=== PATIENT | female | born 1965 | race Caucasian/White ===

== ENCOUNTER 2025-06-20 15:26 | Outpatient (AMB) | payer OTHER, SELFPAY ==
--- NOTE | 2025-06-20 15:27 | MHC.OFFVIS ---
Vital Signs 06/20/25 15:29 Height 5 ft 5.25 in Weight 150 lb BMI 24.8 BP 106/74 Blood Pressure Location Rt brachial Position Sitting Pulse 78 Pulse Source Pulse Oximeter Pulse Oximetry (%) 99 Oxygen Delivery Method Room Air Intake Visit Reasons: Obstructive sleep apnea Allergies Penicillins Allergy (Intermediate, Verified 06/20/25 15:37) Hives HPI HPI Obstructive sleep apnea: Details: Jessi is a pleasant 60 year old female, never smoker, with underlying LARY, GERD and anxiety. She was referred by PCP for further management of LARY. She reports home sleep study in 2022 through [facility], which revealed mild LARY with AH 5.8 with no significant nocturnal hypoxemia. From this same sleep study was told that she has moderate LARY and started on CPAP therapy for three months however has not continued use. She continues with day time fatigue and was borderline anemic started on replacement therapy but resulted in no change, also reports loud snoring. She questions severity of LARY and continued need for CPAP therapy. She also notes ongoing sinus symptoms with persistent post nasal drip as well as intermittent dry cough, under the care of ARIEL allergy and will be undergoing allergy testing in the near future. She denies dyspnea, chest tightness or wheezing. She denies h/o asthma/COPD. She denies any environmental exposures. She reports son with asthma otherwise no pertinent family history. [facility] Social History (Updated 06/20/25 @ 15:36 by Gala Chavez [facility]) Patient Tobacco Use Status: Never used Tobacco Review of Systems Const Denies chills, Denies excessive sweating, Denies fever(s), Denies headache(s) and Denies night sweats Eyes Denies dry eyes, Denies irritation and Denies itchy eyes ENT Reports Normal hearing present, Denies headache(s), Denies nasal discharge and Denies sore throat Card Denies chest pain, Denies chest pain at rest, Denies chest pain with activity, Denies claudication, Denies leg edema, Denies dyspnea, Denies dyspnea on exertion, Denies orthopnea and Denies paroxysmal nocturnal dyspnea Resp Denies chest congestion, Denies excessive phlegm production, Denies pain on inspiration, Denies pain with cough, Denies dyspnea, Denies dyspnea on exertion, Denies stridor and Denies wheezing Musc Denies myalgias Neuro Reports Normal hearing present and Denies headache(s) Endo Denies excessive sweating Jarrod/Lymph Denies lymphadenopathy Aller/Immun Denies itchy eyes, Denies seasonal rhinorrhea and Denies wheezing Physical Exam Vital Signs: Last Vital Signs Pulse 78 06/20/25 15:29 BP 106/74 06/20/25 15:29 Pulse Ox 99 06/20/25 15:29 Oxygen Delivery Method Room Air 06/20/25 15:29 BMI result Body Mass Index 24.8 Const General: cooperative, healthy appearing, comfortable, no acute distress, well developed and alert Orientation/consciousness: patient oriented x3 Limitations: no limitations HEENT Head: Yes normal to inspection, Yes normocephalic and Yes atraumatic Ears: hearing grossly normal bilaterally and external ears normal Eyes General: appearance normal, both eyes and all related structures Eyelids: Yes eyelids normal Sclerae: sclerae normal EOM: EOMs intact bilaterally Neck Neck: Yes normal visual inspection and Yes no lymphadenopathy Lymphatic: no lymphadenopathy noted Chest Chest palpation & inspection: normal inspection of the chest Resp Effort & Inspection: normal respiratory effort, able to speak in complete sentences, no audible wheezes, no cough, no stridor, not tachypneic, no tripod positioning and no use of accessory muscles Auscultation: clear to auscultation bilaterally Cardio Jugular venous distension: no JVD Rate: regular rate Rhythm: regular rhythm Skin Other: warm, dry General skin exam: no rashes or lesions noted Neuro General: patient oriented x3 Cranial nerves: Yes Normal hearing present Cognition (Neuro): normal cognition Gait exam (Neuro): Normal gait present Extrem General: Yes normal to inspection, Yes capillary refill normal, Yes no clubbing, cyanosis or edema and Yes no pedal edema Psych Appearance: grossly normal and well kempt Speech and movement: Normal speech and movement present and Clear speech present Affect: normal affect Attitude: cooperative Thought process: Normal thought process present Thought content: Normal thought content present Insight: Good insight present (Psych) Judgement: Good judgement present (Psych) Assessment & Plan Assessment & Plan (1) Obstructive sleep apnea: Code(s): G47.33 - Obstructive sleep apnea (adult) (pediatric) Category: Medical (2) Loud snoring: Code(s): R06.83 - Snoring Category: Medical (3) Daytime somnolence: Code(s): R40.0 - Somnolence Category: Medical Plan Patient with prior home sleep study was borderline for LARY, not currently using CPAP therapy. Will send for repeat homoe sleep study to assess severity as she continues with signficant daytime fatigue and loud snoring. Discussed in lab sleep study however she prefers home PSG at this time. She also reports ongoing cough however currently being evaluated by program and research coordinator. If testing unremarkable, will send for PFT. Currently denies any reflux symptoms. All questions were answered and patient is in agreement of plan. Will follow up to review results or sooner if needed. Orders: Orders RT home sleep study Today R06.83 - Snoring, R40.0 - Somnolence Coding Level of Care Code New Pt Level 3 (15030) Diagnoses Obstructive sleep apnea G47.33 Loud snoring R06.83 Daytime somnolence R40.0
[2025-06-20 15:29] VITALS: BP 106/74; PULSE 78; O2SAT 99; BMI 24.8
--- OUTSIDE RECORDS SUMMARY | 2025-06-20 15:29 | XMS_ITS ---
[facility] Organization Unknown Care Team Organization Name Specialty Phone Email Start Date End Da te [facility] Marcelle Hooks DO Primary Care 09/27/202206/20
--- OUTSIDE RECORDS SUMMARY | 2025-06-20 15:29 | XMS_ITS | Patient Health Record ---
Author Organization [facility] Address [address] [place] [address] Care Team Providers Care [employer] Director Name Role Phone TARSHA THOMAS, MARIZA Primary Care Provider Unavail able Charito Burr Unavailable [phone] Allergies Allergen (clinical drug ingredient) Drug/Non Drug Allergy documented on EMR Reaction Allergy Type Onset Date Status Penicillin Hives Drug Allergy Active Results Component Value Reference Range Notes Urinalysis Reviewed date:03/18/2025 09:05:52 AM Interpretation: Performing Lab: Notes/Report: PH 5.0 PROTEIN Small GLUCOSE Neg BLOOD Trace Vitamin D, [id number] Reviewed date:03/19/2025 01:01:12 PM Interpretation: Performing Lab:[facility], [address] [place] [address], [place], Phone - [phone], Director - Osvaldo Notes/Report: Vitamin D, 25-Hydroxy 83.4 30.0-100.0 ng/mL Vitamin D deficiency has been defined by the [place] of Medicine and an Endocrine Society practice guideline as a level of serum 25-OH vitamin D less than 20 ng/mL (1,2). The Endocrine Society went on to further define vitamin D insufficiency as a level between 21 and 29 ng/mL (2). 1. IOM ([place] of Medicine). 2010. Dietary reference intakes for calcium and D. [place]: The National Academies Press. 2. Emerson MF, Tamika NC, Greg STEPHENS, et al. Evaluation, treatment, and prevention of vitamin D deficiency: an Endocrine Society clinical practice guideline. JCEM. 2010; 96(7):1911-30. [id number] IGP No Culture 30 Plus Reviewed date:03/20/2025 04:19:15 PM Interpretation: Performing Lab:May Skinner, [address], [address], [place], Phone - [phone], Director - [facility] Notes/Report: Clinical Information:Vaginal/Cervical, LMP: Non e with IUD, Hx of LGSIL, + HPV, + Ge Source.............Cervix;Vagina Dates / Results....03/11/24 NIL, Neg HPV Other..............IUD No. of containers..01 ThinPrep Vial DIAGNOSIS: NEGATIVE FOR IN TRAEPITHELIAL LESION OR MALIGNANCY. Specimen adequacy: Satisfact ory for evaluation. No endocervical component is identified. Clinician provided ICD10: Z0 1.419 Performed by: Victoriano Dunne , Radio Producer (ASCP) . . Note: The Pap smear is a screening test designed to aid in the detection of premalignant and malignant conditions of the uterine cervix. It is not a diagnostic procedure and should not be used as the sole means of detecting cervical cancer. Both false-positive and false-negative reports do occur. . Test Methodology: This liquid based ThinPrep(R) pap test was screened with the use of an image guided system. HPV Aptima Negative Negative This nucleic acid amplification test detects fourteen high-risk HPV types (16,18,31,33,35,39,45,51,52,56,5 8,59,66,68) without differentiation. HPV Genotype Reflex Criteria not met, HPV Genotype not performed. PDF Report Reviewed date:03/19/2025 01:00:59 PM Interpretation: Performing Lab:May Davila, [address], Phone - [phone], Director - Osvaldo Notes/Report: FSH+LH+E2 Reviewed date:03/19/2025 01:01:54 PM Interpretation: Performing Lab:May Davila, [address], Phone - [phone], - Osvaldo Notes/Report: LH 38.5 Adult Female Range Follicular phase 2.4 - 12.6 Ovulation phase 14.0 - 95.6 Luteal phase 1.0 - 11.4 Postmenopausal 7.7 - 58.5 FSH 76.8 Adult Female Range Follicular phase 3.5 - 12.5 Ovulation phase 4.7 - 21.5 Luteal phase 1.7 - 7.7 Postmenopausal 25.8 - 134.8 Estradiol <5.0 Adult Female Range Follicular phase 12.5 - 166.0 Ovulation phase 85.8 - 498.0 Luteal phase 43.8 - 211.0 Postmenopausal <6.0 - 54.7 1st trimester 215.0 - >4300.0 Shilo ECLIA methodology PDF Report Reviewed date:03/20/2025 04:19:26 PM Interpretation: Performing Lab:[facility] Skinner, [address], [address], [place], Phone - [phone], Director - [facility] Notes/Report: Clinical Information:Vaginal/Cervical, LMP: Non e with IUD, Hx of LGSIL, + HPV, + Ge Source.............Cervix;Vagina Dates / Results....03/11/24 NIL, Neg HPV Other..............IUD No. of containers..01 ThinPrep Vial Reason For Referral No Information Medications Medication SIG (Take, Route, Frequency, Duration) Notes Start Date End Date Status Araseli 180 MG 1 ORAL PRN [facility] 10/24/2011 Act seven traZODone HCl 50 MG 75mg Orally at night [facility] 10/28/2014 Active D3-1000 25 MCG (1000 UT) TAKE 1 TABLET BY MOUTH EVERY DAY Oral; Duration: 90 Active Citalopram Hydrobromide 20 MG TAKE 1 1/2 TABLET BY MOUTH EVERY DAY Oral Once a day Active Semaglutide Active Mirena Inserted 01/29/19 Act seven Loperamide HCl 2 MG TAKE 1 CAPSULE BY MOUTH 4 TIMES DAILY NEEDED FOR DIARRHEA. Oral; Duration: 15 Active valACYclovir HCl 1 GM Oral; Duration: 20 Active Social History Tobacco Use: Social History Observation Description Date Details (start date - stop date) Never Smoker NA - NA AUDIT-C (Standard) Question Answer Notes Did you have a drink contain ing alcohol in the past year? Yes How often did you have a dri nk containing alcohol in the past year? 2 to 3 times a week (3 points) How many drinks did you have on a typical day when you were drinking in the past year? 1 or 2 drinks (0 point) How often did you have six o r more drinks on one occasion in the past year? Never (0 point) Points 3 Interpretation Positive Tobacco Control (Standard) Question Answer Notes Tobacco use: Nonsmoker Problems Problem Type SNOMED Code ICD Code Onset Dates Problem Status W/U Status Risk Notes Problem Human papilloma virus deoxyribonucleic acid test positive, high risk on vaginal specimen (761958538864334) Cervical high risk human papillomavirus (HPV) DNA test positive (R87.810) Active confirmed Problem Menopause (168782225) Menopausal and female climacteric states (N95.1) Active confirmed Problem Moderate cervical dysplasia (991059583) Moderate cervical dysplasia (N87.1) Active confirmed Problem Abnormal vaginal bleeding (406276931) Other specified abnormal uterine and vaginal bleeding (N93.8) Active confirmed Problem Vulvodynia (553951140) Vulvodynia, unspecified (N94.819) Active confirmed Problem Unspecified menopausal and perimenopausal disorder (N95.9) Active confirmed Problem History of dysplasia of cervix (285478497) Personal history of cervical dysplasia (Z87.410) Active confirmed Problem Menopause (998744155) Menopausal and female climacteric states (N95.1) Active confirmed Problem Vulvodynia (844639675) Vulvodynia, unspecified (625.70) Active confirmed Major Problem Atypical glandular cells on cervical Papanicolaou smear (516414299) Abnormal glandular Papanicolaou smear of cervix (795.00) Active confirmed Diag Problem Gynecological examination normal (985557423538426) Routine gynecological examination (V72.31) Active confirmed Major Problem Surveillance of intrauterine device contraception done (114908985897390) Surveillance of previously prescribed intrauterine contraceptive device (V25.42) Active confirmed Other Vital Signs Temperature 97.5 degrees Fahrenheit 03/18/2025 Blood pressure diastolic 78 mm Hg 03/18/2025 Height 66 in 03/18/2025 Blood pressure systolic 122 mm Hg 03/18/2025 Weight 154 lbs 03/18/2025 BMI 24.85 kg/m2 03/18/2025 Encounters Encounter Location Date Provider Diagnosis Total [address] [place] [address] 03/18/2025 Charito Burr Encounter for gynecological examination (general) (routine) without abnormal findings Z01.419 ; Encounter for screening mammogram for malignant neoplasm of breast Z12.31 ; Menopausal and female climacteric states N95.1 ; Encounter for routine checking of intrauterine contraceptive device Z30.431 ; Personal history of cervical dysplasia Z87.410 and Dense breasts, unspecified R92.30 Assessments Encounter Date Diagnosis (ICD Code) Assessment Notes Treatment Notes Treatment Clinical Notes Section Notes 03/18/2025 Encounter for gynecological examination (general) (routine) without abnormal findings (ICD-10 - Z01.419) PAP TEST WITH HPV TYPING WAS OBTAINED. 03/18/2025 Encounter for screening mammogram for malignant neoplasm of breast (ICD-10 - Z12.31) REGULAR MAMMOGRAMS AND SBE'S WERE RECOMMENDED. 03/18/2025 Menopausal and female climacteric states (ICD-10 - N95.1) DISCUSSED MENOPAUSE AND SYMPTOMS ASSOCIATED WITH THIS. CHECK FSH, ESTRADIOL. 03/18/2025 Encounter for routine checking of intrauterine contraceptive device (ICD-10 - Z30.431) PAT WAS REASSURED IUD IS IN PLACE. WILL REMOVE IN 2025. 03/18/2025 Personal history of cervical dysplasia (ICD-10 - Z87.410) DISCUSSED PREVIOUS LEEP FOR LILIAM 2 AND SUBSEQUENTLY NEGATIVE PAP TESTS. REPEAT PAP TEST WITH HPV TYPING WAS OBTAINED. 03/18/2025 Dense breasts, unspecified (ICD-10 - R92.30) DISCUSSED DENSE BREASTS ON MAMMOGRAM AND ITS IMPLICATIONS. 3D MAMMOGRAMS WERE RECOMMENDED. Plan Of Treatment Pending Test Test Name Order Date Sonohysterogram 06/14/2018 Urinalysis 02/15/2021 ENDOMETRIAL BX 06/14/2018 ESTRADIOL 01/11/2018 FSH 01/11/2018 LH 01/11/2018 THIN PREP,HPV,BEV IF HPV+ (>29YR)(DIAG) 12/17/2019 MM Digital Mammo Screening 12/17/2019 MM Digital Mammo Screening 11/10/2017 MM Digital Mammo Screening 02/15/2021 MM Digital Mammo Screening 02/23/2022 MM Digital Mammo Screening 03/02/2023 MM Digital Mammo Screening 03/11/2024 MM Digital Mammo Screening 03/18/2025 Next Appt Details Provider Name:Charito mar, 03/26/2026 08:20:00 AM, [address], [address], [place], [address], Insurance Providers Payer Name Payer Address Payer Phone Subscriber Number Group Number Insured Name Patient Relationship to Insured Coverage Start Date Coverage End Date [facility] [address] [place] [address] [phone] [id number] JOHNSON CAPONE Self - patient is the insured Medical (General) History Medical History History ICD Code Vulvodynia, unspecified N94.819 Inconclusive mammogram R92.2 Atypical squamous cells janneth ot exclude high grade squamous intraepithelial lesion on cytologic smear of cervix (ASC-H) R87.611 Unspecified abnormal cytological finding s in specimens from cervix uteri R87.619 Cervical high risk human papillomavirus (HPV) DNA test positive R87.810 Positive HPV Genotype 18/45 Menopausal and female climacteric states N95.1 Moderate cervical dysplasia N87.1 Other specified abnormal uterine and vag inal bleeding N93.8 Low grade squamous intraepit helial lesion on cytologic smear of cervix (LGSIL) R87.612 Mammographic heterogeneous density, bila teral breasts R92.333 Dense breasts, unspecified R92.30 Unspecified menopausal and perimenopausa l disorder N95.9 Surgical History Surgery Date(Month/Year) Breast Augmentation Colonoscopy Hospitalization History Reason Date(Month/Year) See Surigcal Hx 2 Vaginal Deliveries
== END 2025-06-20 16:22 | disposition home or self-care (01) ==
LOC: HO.HPSW 15:27
PROVIDERS: PCP Nurse Practitioner Family; Visit Provider Nurse Practitioner Family
DX: G47.33 Obstructive sleep apnea (adult) (pediatric) (principal); R06.83 Snoring; R40.0 Somnolence
CPT/HCPCS: 99203

== ENCOUNTER → 2025-09-25 15:45 | Outpatient (REF) | payer OTHER, SELFPAY ==
--- OUTSIDE RECORDS SUMMARY | 2025-09-25 18:30 | XMS_ITS | Patient Health Record ---
Author Organization [employer] Address [address] [place] [address] Care Team Providers Care Child Welfare Caseworker Name Role Phone TARSHA THOMAS, MARIZA Primary Care Provider Unavail able Charito Burr Unavailable [phone] Allergies Allergen (clinical drug ingredient) Drug/Non Drug Allergy documented on EMR Reaction Allergy Type Onset Date Status Penicillin Hives Drug Allergy Active Results Component Value Reference Range Notes FSH+LH+E2 Reviewed date:03/19/2025 01:01:54 PM Interpretation: Performing Lab:May Davila, [employer] [facility], [place], Phone - [phone], Director - Osvaldo Notes/Report: LH 38.5 Adult Female [...] >4300.0 Shilo ECLIA methodology PDF Report Reviewed date:03/19/2025 01:00:59 PM Interpretation: Performing Lab:May Davila, [employer] [place], [place], Phone - [phone], Director - Osvaldo Notes/Report: [id number] IGP No Culture 30 Plus Reviewed date:03/20/2025 04:19:15 PM Interpretation: Performing Lab:[facility] [place], [address], [address], [place], Phone - [phone], Director - [facility] Notes/Report: Clinical Information:Vaginal/Cervical, LMP: Non e with IUD, Hx of LGSIL, + HPV, + Ge Source.............Cervix;Vagina Dates / Results....03/11/24 NIL, Neg HPV Other..............IUD No. of containers..01 ThinPrep Vial DIAGNOSIS: NEGATIVE FOR IN TRAEPITHELIAL LESION OR MALIGNANCY. Specimen adequacy: Satisfact ory for evaluation. No endocervical component is identified. Clinician provided ICD10: Z0 1.419 Performed by: Victoriano Dunne , Assistance Specialist (ASCP) . . Note: The Pap smear [...] Criteria not met, HPV Genotype not performed. Vitamin D, [id number] Reviewed date:03/19/2025 01:01:12 PM Interpretation: Performing Lab:[facility] [place], [address], [place], Phone - [phone], Director - Osvaldo Notes/Report: Vitamin D, 25-Hydroxy 83.4 30.0-100.0 ng/mL Vitamin D deficiency has been defined by the [place] of Medicine and an Endocrine Society practice guideline as a level of serum 25-OH vitamin D less than 20 ng/mL (1,2). The Endocrine Society went on to further define vitamin D insufficiency as a level between 21 and 29 ng/mL (2). 1. IOM ([place] of Medicine). 2010. Dietary reference intakes for calcium and D. [place]: The National Academies Press. 2. Emerson JADE, Tamika FISHER, Greg STEPHENS, et al. Evaluation, treatment, and prevention of vitamin D deficiency: an Endocrine Society clinical practice guideline. JCEM. 2010; 96(3):1911-30. Urinalysis Reviewed date:03/18/2025 09:05:52 AM Interpretation: Performing Lab: Notes/Report: PH 5.0 PROTEIN Small GLUCOSE Neg BLOOD Trace PDF Report Reviewed date:03/20/2025 04:19:26 PM Interpretation: Performing Lab:[facility] [place], [address], [address], [place], Phone - [phone], Director - [facility] Notes/Report: Clinical Information:Vaginal/Cervical, LMP: Non e with IUD, Hx of LGSIL, + HPV, + Ge Source.............Cervix;Vagina Dates / Results....03/11/24 NIL, Neg HPV Other..............IUD No. of containers..01 ThinPrep Vial Reason For Referral No Information Medications Medication SIG (Take, Route, Frequency, Duration) Notes Start Date End Date Status Araseli 180 MG 1 ORAL PRN [facility] 10/24/2011 Act seven traZODone HCl 50 MG 75mg Orally at night [facility] 10/28/2014 Active D3-1000 25 MCG (1000 UT) [...] test positive, high risk on vaginal specimen (124461796643803) Cervical high risk human papillomavirus (HPV) DNA test positive (R87.810) Active confirmed Problem Menopause (523902416) Menopausal and female climacteric states (N95.1) Active confirmed Problem Moderate cervical dysplasia (045165686) Moderate cervical dysplasia (N87.1) Active confirmed Problem Abnormal vaginal bleeding (761205136) Other specified abnormal uterine and vaginal bleeding (N93.8) Active confirmed Problem Vulvodynia (832075821) Vulvodynia, unspecified (N94.819) Active confirmed Problem Unspecified menopausal and perimenopausal disorder (N95.9) Active confirmed Problem History of dysplasia of cervix (991598848) Personal history of cervical dysplasia (Z87.410) Active confirmed Problem Menopause (739935668) Menopausal and female climacteric states (N95.1) Active confirmed Problem Vulvodynia (377842609) Vulvodynia, unspecified (625.70) Active confirmed Major Problem Atypical glandular cells on cervical Papanicolaou smear (904438730) Abnormal glandular Papanicolaou smear of cervix (795.00) Active confirmed Diag Problem Gynecological examination normal (169458163042674) Routine gynecological examination (V72.31) Active confirmed Major Problem Surveillance of intrauterine device contraception done (387101100112075) Surveillance of previously prescribed intrauterine contraceptive device (V25.42) Active confirmed Other Vital Signs Temperature 97.5 degrees Fahrenheit 03/18/2025 Blood pressure diastolic 78 mm Hg 03/18/2025 Height 66 in 03/18/2025 Blood pressure systolic 122 mm Hg 03/18/2025 Weight 154 lbs 03/18/2025 BMI 24.85 kg/m2 03/18/2025 Encounters Encounter Location Date Provider Diagnosis Total [address] [place] [address] 03/18/2025 Charito Burr Encounter for gynecological examination [...] Provider Name:Charito mar, 03/26/2026 08:20:00 AM, [address], [address], [place], [address], Insurance Providers Payer Name Payer Address Payer Phone Subscriber Number Group Number Insured Name Patient Relationship to Insured Coverage Start Date Coverage End Date [facility] [address] [place] [address] [id number] JOHNSON CAPONE Self - patient is the [...]
== END ==
LOC: HO.SL 15:45
PROVIDERS: PCP Nurse Practitioner Family; Visit Provider Nurse Practitioner Family
DX: G47.33 Obstructive sleep apnea (adult) (pediatric) (principal); R06.83 Snoring; R40.0 Somnolence
CPT/HCPCS: 95806

== ENCOUNTER → 2025-09-25 16:11 | Outpatient (BNV) | payer OTHER, SELFPAY | PROVIDERS: PCP Nurse Practitioner Family; Visit Provider Internal Medicine | DX: G47.33 Obstructive sleep apnea (adult) (pediatric) (principal) | CPT/HCPCS: 95806 ==

== ENCOUNTER 2025-10-07 15:54 | Outpatient (AMB) | payer OTHER, SELFPAY ==
--- OUTSIDE RECORDS SUMMARY | 2025-10-06 23:59 | XMS_ITS | Continuity of Care Document ---
Author Organization [facility] Address [address] [place] [address] Julia moran, [address] [place] [address]- Care Team Providers Care Technician Helper Instrument Name Role Phone Florentino THOMAS, Kari Primary Care Physician Encounter [facility] [id number] Date(s): 09/29/25 - 10/06/25 [facility] [address] [place] [address] Drive [address] [place] [address]- Attending Physician: Arnold Villa DO Referring Physician: Lula Charlton MD Encounter Type: Office Visit Allergies, Adverse Reactions, Alerts Substance Criticality Severity Reaction Reaction Severity Status penicillins Active Functional Status Functional Status Assessment Assessment Assessment Component Result Effecti ve Date Disability status [CUBS] I'm Thriving - no identified disability 09/29/25 Difficulty Reading O r Writing No 09/29/25 Are you blind, or do you have serious difficulty seeing, even when wearing glasses No 09/29/25 Difficulty communica ting in usual language No 09/29/25 Are you deaf, or do you have serious difficulty hearing No 09/29/25 Do you have serious difficulty walking or climbing stairs No 09/29/25 Because of a physica l, mental, or emotional condition, do you have serious difficulty concentrating, remembering, or making decisions No 09/29/25 Because of a physica l, mental, or emotional condition, do you have difficulty doing errands alone such as visiting a physician's office or shopping No 09/29/25 Do you have difficul ty dressing or bathing No 09/29/25 Do you need any wilfredo tional assistance or accommodations during your visit No 09/29/25 Immunizations Given and Recorded Vaccine Date Status Refusal Reason tetanus/diphtheria/pertussis, acel(Tdap) 04/13/14 Given Medications Celexa By Mouth, Daily, 0 Refills, Maintenance, 04/13/14 5:48:51 PM EDT Start Date: 04/13/14 Status: Ordered Medication Dispense Status: Completed Total Allowed Fills: 1 Fills Dispensed: 0 famotidine 20 mg oral tablet 20 mg, 1, tablet, By Mouth, 2 times a day, PRN, # 60 tablet, Refills 0, Maintenance, Dyspepsia, 09/29/25 3:27:00 PM EST, Partial fill upon patient request if the prescription is for a schedule II opioid drug. Start Date: 09/29/25 Status: Ordered Medication Dispense Status: Completed Quantity: 60.0 Unit: tablet Total Allowed Fills: 1 Fills Dispensed: 0 loperamide 2 mg oral tablet 1 tablet = 2 mg, By Mouth, Every 4 hours, PRN for loose stool, # 60 tablet, 0 Refills, Maintenance,09/29/25 3:28:00 PM EST, Tablet, Partial fill upon patient request if the prescription is for a schedule II opioid drug. Start Date: 09/29/25 Status: Ordered Medication Dispense Status: Completed Quantity: 60.0 Unit: tablet Total Allowed Fills: 1 Fills Dispensed: 0 omeprazole 20 mg oral enteric coated capsule 1 capsule = 20 mg, By Mouth, Daily at bedtime, # 30 capsule, 0 Refills, Maintenance, 09/29/25 3:48:00 PM EST, EC Capsule, [facility]/pharmacy #[id number], Partial fill upon patient request if the prescription is for a schedule II opioid drug., 164, cm, 09/29/25 14:57:00 EST, Height Start Date: 09/29/25 Status: Ordered Medication Dispense Status: Completed Quantity: 30.0 Unit: capsule Total Allowed Fills: 1 Fills Dispensed: 0 semaglutide 0.25 mg/0.5 mL (0.25 mg dose) subcutaneous solution = 0.25 mg, Subcutaneous Injection, Every week, in the abdomen, thigh, or upper arm, # 2 mL, 0 Refills, Maintenance, 09/29/25 3:28:00 PM EST, Solution, Partial fill upon patient request if the prescription is for a schedule II opioid drug. Start Date: 09/29/25 Stop Date: 10/27/25 Status: Ordered Medication Dispense Status: Completed Quantity: 2.0 Unit: mL Total Allowed Fills: 1 Fills Dispensed: 0 Trazodone By Mouth, 0 Refills, Maintenance, 04/13/14 5:48:41 PM EDT Start Date: 04/13/14 Status: Ordered Medication Dispense Status: Completed Total Allowed Fills: 1 Fills Dispensed: 0 valACYclovir 500 mg oral tablet 500 mg, 1, tablet, By Mouth, Every 12 hours, PRN, for recurrent HSV infection, # 6 tablet, Refills 0, Maintenance, Rash, 09/29/25 3:28:00 PM EST, Partial fill upon patient request if the prescriptionis for a schedule II opioid drug. Start Date: 09/29/25 Stop Date: 10/02/25 Status: Ordered Medication Dispense Status: Completed Quantity: 6.0 Unit: tablet Total Allowed Fills: 1 Fills Dispensed: 0 Problem List Condition Confirmation Course Effective Dates Status H ealth Status Informant Paraesophageal hernia Confirmed Active Pericardial cyst Confirmed Active Procedures Procedure Date Related Diagnosis Body Site Status Left breast augmentation Completed Right breast reduction Co mpleted Vital Signs Most recent to oldest [Reference Range]: 1 Height 164 cm (09/29/25 2:57 PM) Weight 69 kg (09/29/25 2:57 PM) Oxygen Saturation [94-100 %] 96 % (09/29/25 2:57 PM) Pulse Rate [55-90 bpm] 60 bpm (09/29/25 2:57 PM) Body Mass Index [18.5-24.99 kg/m2] 25.65 kg/m2 *H* (09/29/25 2:57 PM) Blood Pressure [90-138/55-84 mm Hg] 146/ 80mm Hg *H* (09/29/25 2:57 PM) Respiratory Rate [16-30 br/min] 18 br/mi n (09/29/25 2:57 PM) Temperature [96.8-100.4 DegF] 97.6 DegF (09/29/25 2:57 PM) Mode of Delivery (Oxygen) Room air (09/29/25 2:57 PM) Blood pressure sites Arm, right (09/29/25 2:57 PM) Temperature Route Temporal (09/29/25 2:57 PM) Weight Obtained Via Standing scale (09/29/25 2:57 PM) Social History Social History Type Response Smoking Status Never (less than 100 in lifetime) entered on: 09/29/25 Sex Sex Representation Female (finding) Note * Triny Ferrari: PERFORM Event Display: Patient Education/Instruction Authored Date: [id number] Ambulatory Adult Visit Summary [facility] [address] [place] [address] Drive [address] [place] [address] Name: JOHNSON CAPONE : 1965?? Visit: 09/29/2025 14:49?? Ambulatory Visit Instructions ?? Your Care Team Primary Care Provider Florentino THOMAS, Kari? This Visit Provider Arnold Villa DO Vitals Signs Temperature: 97.6 DegF Height: 164 cm Pulse Rate: 60 bpm Weight: 69 kg Respiratory Rate: 18 br/min Body Mass Index:??25.65 kg/m2??High Systolic Blood Pressure:??146 mm Hg??High Body surface area: 1.77 Diastolic Blood Pressure: 80 mm Hg ?? Oxygen Saturation: 96 % ?? What to do next Instructions From Your Provider [facility] [address] [place] [address] ?? Dr. Arnold Villa, , FACS?? Dr. Vi Reyes MD, FCCP, FACS? Dr. Conchis Lucas MD, MPH, FACS? Zulema Lebron, MSN, V[employer] CASTER- ?? Office Phone #: [phone]? Office Fax #: [phone] ?? Diagnosis: 1.??Type III paraesophageal hernia 2. Right pericardial cyst? Additional Instructions: -??Do not overeat. If you develop repeat episodes of nausea/vomiting/retching, bloody vomit/stool, food getting stuck in your chest, pain in your upper abdomen/lower chest after eating, or worsening heart burn, call the thoracic surgery office immediately. - Prescription sent for Omeprazole 20??mg by??mouth daily.?? Scheduled Follow-Up Appointments Monday2025 4:00 PM EST ?? Type: Return With: Arnold Villa DO Where: [facility] [address] [place] [address]- Status: Pending Follow-Up Appointments Follow Up with??Arnold Villa DO When:12/23/2025 04:00 PM EST Where:[address] [place] [address] [address] [facility] [place] [address]- Medications The list below reflects the information in our records and provided by you today along with any changes made during this visit. Please continue your medications until treatment is completed or stopped by your provider. If this is different from the information you have or there are other questions,please contact the prescribing provider. What How Much When Instructions New Omeprazole (omeprazole 20 mg oral enteric coated capsule) 1 capsule Oral Daily at Bedtime Ordering Physician: Arnold Villa DO Pickup at [facility]/pharmacy #[id number] Unchanged Citalopram (Celexa) Oral Daily Unchanged Famotidine (famotidine 20 mg oral tablet) 1 tab(s) Oral Twice a day as needed for Dyspepsia Unchanged Loperamide (loperamide 2 mg oral tablet) 1 tab(s) Oral Every 4 hours as needed for for loose stool Unchanged semaglutide (semaglutide 0.25 mg/ 0.5 mL (0.25 mg dose) subcutaneous solution) 0.25 Milligram Subcutaneous Injection Every week Duration: 4 week(s) Special Instructions: in the abdomen, thigh, or upper arm ?? Unchanged Trazodone Oral Unchanged ValACYclovir (valACYclovir 500 mg oral tablet) 1 tab(s) Oral Every 12 hours as needed for Rash Duration: 3 Days Special Instructions: for recurrent HSV infection ?? Pharmacy Information [id number]: [address], [place] [id number] [phone] Medications and Immunizations Administered Medications Given During Visit No medications given during this visit.?? Allergies (NKA means No Known Allergies) penicillins Common Emergency Awareness Tips IS IT A STROKE? Act FAST and Check for these signs: FACE Does the face look uneven? ARM Does one arm drift down? SPEECH Does their speech sound strange? TIME Call at any sign of stroke ?? Heart Attack Signs Chest discomfort: Most heart attacks involve discomfort in the center of the chest and lasts more than a few minutes, or goes away and comes back. It can feel like uncomfortable pressure, squeezing, fullness or pain. Discomfort in upper body: Symptoms can include pain or discomfort in one or both arms, back, neck, jaw or stomach. Shortness of breath: With or without discomfort. Other signs: Breaking out in a cold sweat, nausea, or lightheaded. Remember, MINUTES DO MATTER. If you experience any of these heart attack warning signs, call to get immediate medical attention! ?? Smoking can increase your chances of developing chronic health problems and can cause harmful effects to other family members in your house. If you smoke, you are strongly encouraged to quit. Please call [employer] at [phone] or 4-633-296[employer] ([phone]) or log in to [email or web address] for referrals to smoking cessation programs. ?? The National Suicide Prevention Hotline is available 12/06 if you or someone you know needs to find a reason to keep living. By calling 3-267-460-[employer] (3562) you'll be connected to a skilled, trained counselor at a crisis center in your area. [facility] [employer] Portal You can view and manage your care through the patient portal or by using a health care glen of your choosing. [employer] is a website that allows you to securely view your medical information including your hospital discharge summary, office visit summaries, medications and follow-up visits. You can also request appointments, renew medications, and request access to your medical information using a health care glen of your choosing, or just ask a question. You can enroll at [email or web address] or register during your next office visit. [facility], in keeping with [facility] guidance, no longer requires face masks for staff, patientsor visitors in most situations. Similiar to time spent indoors at other locations, there is the chance that you were exposed to repiratory viruses during your time with us (such as flu or COVID-19). If you develop symptoms concerning for a viral respiratory infection, please seek testing (and treatment if indicated) from your medical provider or home test kit. ?? Disclaimer: The information provided is of a general nature and is intended to be used in conjunction with the recommendations and advice of your health care practitioner. Every effort has been made to ensure that the information provided is accurate and complete at the time it is provided to you however, as your needs change, or, as new information becomes available, different or additional instructions may be required. ?? If you have questions, please consult with your primary care provider or pharmacist, as appropriate. This information is not intended to serve as substitution for assessment and evaluation by a qualified health care provider. If you do not have a primary care provider, you may find a [facility] provider by calling [facility] [employer] [facility] at [phone]. Patient Care team information Care Team Personnel Name: Kari Good NP Position: [facility] Outreach Member Role: PCP Address: [address] [place] [address] Telecom: Care Team Related Persons Name: ANATOLIY WHITEHEAD Name: BARBARA LIU Name: BARBARA LIU Insurance Providers Guarantor name: [facility] Information #: 1 Payer: [facility] Payer Identifier: NORMA Member Number: [id number] Group Number: [id number] Subscriber Identifier: [id number] Relationship to Subscriber: self Coverage Type: NA Coverage Verification Date: NA Telecom: NA Address:
--- NOTE | 2025-10-07 15:55 | A.OFFVIS_ITS ---
Vital Signs 10/07/25 15:56 Height 5 ft 5.25 in Weight 148 lb 6 oz BMI 24.5 BP 118/86 Blood Pressure Location Rt brachial Position Sitting Pulse 71 Pulse Source Pulse Oximeter Pulse Oximetry (%) 99 Oxygen Delivery Method Room Air Intake Visit Reasons: Obstructive sleep apnea Allergies Penicillins Allergy (Intermediate, Verified 10/07/25 15:58) Hives HPI HPI Obstructive sleep apnea: Details: Jessi is a pleasant 60 year old female, never smoker, with underlying LARY, GERD and anxiety. She was initially referred by PCP for further management of LARY. She reports home sleep study in 2022 through [facility], which revealed mild LARY with AH 5.8 with no significant nocturnal hypoxemia. From this same sleep study was told that she has moderate LARY and started on CPAP therapy for three months however did not receive benefit and discontinued. She continues with day time fatigue, found to be anemic and started on replacement therapy with some improvement. Since the last visit, she was found to have grade III moderate hiatal hernia with possible surgical repair through [facility]. She was also started on omeprazole as cough possibly related to reflux which she just started last week, unable to assess effectiveness. Recent PFT 07/2025 [facility]: FEV1 112, FVC 122, FEV1/FVC 93% with no significant improvement to bronchodilators, TLC 107 and RV 101. There was note of decreased DLCO 64% which could be related to anemia. Recent chest CT did not reveal any significant findings to explain DLCO. Today she presents to review home sleep study. [facility] Social History (Updated 06/20/25 @ 15:36 by Gala Chavez [facility]) Patient Tobacco Use Status: Never used Tobacco Review of Systems Const Denies chills, Denies excessive sweating, Denies fever(s), Denies headache(s) and Denies night sweats Eyes Denies dry eyes, Denies irritation and Denies itchy eyes ENT Reports Normal hearing present, Denies headache(s), Denies nasal discharge and Denies sore throat Card Denies chest pain, Denies chest pain at rest, Denies chest pain with activity, Denies claudication, Denies leg edema, Denies dyspnea, Denies dyspnea on exertion, Denies orthopnea and Denies paroxysmal nocturnal dyspnea Resp Denies chest congestion, Denies excessive phlegm production, Denies pain on inspiration, Denies pain with cough, Denies dyspnea, Denies dyspnea on exertion, Denies stridor and Denies wheezing Musc Denies myalgias Neuro Reports Normal hearing present and Denies headache(s) Endo Denies excessive sweating Jarrod/Lymph Denies lymphadenopathy Aller/Immun Denies itchy eyes, Denies seasonal rhinorrhea and Denies wheezing Physical Exam Const General: cooperative, healthy appearing, comfortable, no acute distress, well developed and alert Orientation/consciousness: patient oriented x3 Limitations: no limitations HEENT Head: Yes normal to inspection, Yes normocephalic and Yes atraumatic Ears: hearing grossly normal bilaterally and external ears normal Eyes General: appearance normal, both eyes and all related structures Eyelids: Yes eyelids normal Sclerae: sclerae normal EOM: EOMs intact bilaterally Neck Neck: Yes normal visual inspection and Yes no lymphadenopathy Lymphatic: no lymphadenopathy noted Chest Chest palpation & inspection: normal inspection of the chest Resp Effort & Inspection: normal respiratory effort, able to speak in complete sentences, no audible wheezes, no cough, no stridor, not tachypneic, no tripod positioning and no use of accessory muscles Auscultation: clear to auscultation bilaterally Cardio Jugular venous distension: no JVD Rate: regular rate Rhythm: regular rhythm Skin Other: warm, dry General skin exam: no rashes or lesions noted Neuro General: patient oriented x3 Cranial nerves: Yes Normal hearing present Cognition (Neuro): normal cognition Gait exam (Neuro): Normal gait present Extrem General: Yes normal to inspection, Yes capillary refill normal, Yes no clubbing, cyanosis or edema and Yes no pedal edema Psych Appearance: grossly normal and well kempt Speech and movement: Normal speech and movement present and Clear speech present Affect: normal affect Attitude: cooperative Thought process: Normal thought process present Thought content: Normal thought content present Insight: Good insight present (Psych) Judgement: Good judgement present (Psych) Results Reviewed Results Reviewed: RESULT: CT Chest W/O Contrast CT Chest W/O Contrast INDICATION: Persistent cough R05.3; TECHNIQUE: Helical CT scan of the chest without IV contrast, formatted in 3 planes. Weight-based protocol was performed using automatic exposure control. CTDIvol Body: 4.53 mGy, DLP Body: 284 mGy*cm. COMPARISON: Pertinent portions of the abdomen and pelvis CT 02/11/2020. FINDINGS: Trachea and airways: Patent without evidence of tracheal or endobronchial lesion. Lungs and pleura: Clear lungs. No effusion or pneumothorax. Mediastinum and phoenix: No mass or hematoma. No mediastinal or hilar lymphadenopathy. Moderate-sized type III paraesophageal hiatal hernia. Heart: Heart is normal in size. Probable pericardial cyst just lateral to the junction of the inferior vena cava and right atrium measuring up to 3.6 cm AP dimension slightly larger than previous exam. Aorta: No aortic aneurysm. Pulmonary arteries: Normal caliber. Chest wall soft tissues: Status post left augmentation mammoplasty. Diaphragm and included upper abdomen: No significant abnormality. Bones: No acute abnormalities, no suspicious osseous lesions. IMPRESSION: 1. No suspicious pulmonary nodules. 2. Probable pericardial cyst largely has increased in size in the interval. 3. Moderate-sized type III paraesophageal hernia has increased in size in the interval. WSN: [id number] Ordering Physician: Lula Charlton Reason For Exam R05.3 Signature Line Dictated By: Reji Moreau MD Dictated Date/Time: 08/28/25 5:11 pm Reviewed By: Reji Moreau MD Signed By: Reji Moreau MD Signed Date/Time: 08/28/25 5:11 pm Transcribed By: MORENO Assessment & Plan Assessment & Plan (1) Obstructive sleep apnea: Code(s): G47.33 - Obstructive sleep apnea (adult) (pediatric) Category: Medical (2) Chronic cough: Code(s): R05.3 - Chronic cough Category: Medical Plan Reviewed HST which demonstrated mild LARY AHI 5.2 however in supine AHI 10, without significant nocturnal hypoxemia. We discussed positional therapy and monitoring symptoms, as she would like to hold of on CPAP therapy at this time. Reviewed PFT and chest CT which did not demonstrate any findings contributing to cough, may be related to reflux which she recently started omeprazole. She will follow up if no changes in cough after PPI trial. All questions were answered and patient is in agreement of plan. Will follow up PRN. Coding Level of Care Code Est Pt Level 4 (84886) Diagnoses Obstructive sleep apnea G47.33 Chronic cough R05.3
[2025-10-07 15:56] VITALS: BP 118/86; PULSE 71; O2SAT 99; BMI 24.5
--- OUTSIDE RECORDS SUMMARY | 2025-10-08 13:14 | XMS_ITS | Clinical Summary ---
Author Organization [facility] Address [address] [place] [address] Phone Care Team Providers Care Lean Manufacturing Leader Name Role Phone Kari Good NP Primary Care Provider Allergies No known active allergies Encounters Date Type Department Care Team Description 09/16/2025 Telephone Pulmonology - [place] [address] [facility] [address] [place] [address] Kari Good NP 08/12/2025 2:39 PM EDT - 08/12/2025 11:59 PM EDT Hospital Encounter [facility] [address] [place] [address] Chronic cough Discharge Disposition: Home or Self Care from Last 3 Months Surgical History Surgery Date Site/Laterality Comments OTHER SURGICAL HISTORY PROCEDURE: [place] PREPARATION MOULAGE CUSTOM BREAST IMPLANT COLONOSCOPY 09/30/2016 PROCEDURE: HISTORICAL COLONOSCOPY; COMMENT: Diverticulosis; 4 mm rectal polyp: hyperplastic. CERVICAL BIOPSY W/ LOOP ELECTRODE EXCISION 01/11/2018 PROCEDURE: KS CONIZATION CERVIX W/WO D&C RPR ELTRD EXC Medical History Medical History Date Comments Depression with anxiety DX:Depre ssion with anxiety IBS (irritable bowel syndrome) D X:IBS (irritable bowel syndrome) Vulvodynia 12/23/2011 DX:Vulvodynia Diverticulosis 09/30/2016 DX:Diverticulosi s; COMMENT: Incidental finding at colonoscopy 09/30/2016. Abdominal pain DX:Abdominal shell n Abdominal cramping DX:Abdominal cramping Family History Medical History Relation Name Comments Stroke Brother no sequelae No Known Problems Father Relation Name Status Comments Brother Alive Daughter Alive well Father Alive Maternal Grandmother heart d isease Mother Alive htn, depression /anxiety, tia; Myrandajeniffer Waldrop Paternal Grandmother stroke Sister Verito Mohan Alive Son Alive asthma Social History Tobacco Use Types Packs/Day Years Used Date Smoking Tobacco: Never Smokeless Tobacco: Never Alcohol Use Standard Drinks/Week Comments Yes 1.7 (1 standard drink = 0.6 oz p ure alcohol) Comments Unknown Sex and Gender Information Value Date Recorded Sex Assigned at Not on file Legal Sex Female 6:10 PM EST Gender Identity Not on file Sexual Orientation Not on file Obstetrics History Last Filed Vital Signs Vital Sign Reading Time Taken Comments Blood Pressure 110/80 03/07/2024 3:29 PM EDT Pulse 68 03/07/2024 3:29 PM EDT Temperature - - Respiratory Rate - - Oxygen Saturation - - Inhaled Oxygen Concentration - - Weight 69.9 kg (154 lb 3.2 oz) 03/07/2024 3:29 P M EDT Height 166.4 cm (5' 5.5 ) 03/07/2024 3:29 PM EDT Body Mass Index 25.27 03/07/2024 3:29 PM EDT Plan of Treatment Health Maintenance Due Date Last Done Comments Breast Cancer Screening 1965 Colorectal Cancer Screening: Colonoscopy 1965 Hepatitis B Vaccines (1 of 3 - 19+ 3-dose series) 1985 Cervical Cancer Screening: Pap Smear 1987 Pneumococcal Vaccine: 50+ Years (1 of 1 - PCV) 2016 HIV Screening 10/29/2022 Hepatitis C Screening 10/29/2022 Social Influencers of Health Screening 10/29/2022 Depression Screening 11/20/2024 COVID-19 Vaccine (3 - 2024- season) 2025 06/08/2021, 05/18/2021 Influenza Vaccine (#1) 2025 DTaP,Tdap,and Td Vaccines (5 - Td or Tdap) 03/12/2035 03/12/2025, 04/13/2014, 04/13/2014, Additional history exists RSV Immunization Adult Patients (1 - 1-dose 75+ series) 2041 Zoster Vaccines Completed 12/28/2023, 08/16/2023 HIB Vaccines Aged Out No longer eligi ble based on patient's age to complete this topic HPV Vaccines Aged Out No longer eligi ble based on patient's age to complete this topic Hepatitis A Vaccines Aged Out No long er eligible based on patient's age to complete this topic IPV Vaccines Aged Out No longer eligi ble based on patient's age to complete this topic MMR Vaccines Aged Out No longer eligi ble based on patient's age to complete this topic Meningococcal ACWY Vaccine Aged Out N o longer eligible based on patient's age to complete this topic Meningococcal B Vaccine Aged Out No l onger eligible based on patient's age to complete this topic RSV Immunization Patients Under 20 months Aged Out No longer eligible based on patient's age to complete this topic Varicella Vaccines Aged Out No longer eligible based on patient's age to complete this topic Procedures Procedure Name Priority Date/Time Associated Diagnosis Comments HC SPIROMETRY BRONCHODILATION RESPONSIVENESS PRE/POST BRONCHODILATOR ADMINISTRATION Routine 08/12/2025 3:18 PM EDT Chronic cough from Last 3 Months Results * Pulmonary function testing: Carbon Monoxide Diffusing Capacity, Nitrogen Wash Out, Spirometry with Bronchodilator (08/12/2025 3:18 PM EDT) Narrative Gabriel Vázquez MD - 08/14/2025 2:06 PM EDT Table formatting from the original result was not included. Images from the original result were not included. [facility] [address] [place] [id number] Pulmonary Functions Report Date of service: 08/12/25 Patient Name: Jessi Capone Date of : 1965 Age: 60 y.o. Gender: female Ordering Provider: Lula Charlton MD Diagnosis listed on Order: Chronic cough Reason for Exam: Order Questions Answers Reason for Exam: CHRONIC COUGH Which PFTs would you like to perform? Carbon Monoxide Diffusing Capacity,Nitrogen Wash Out,Spirometry with Bronchodilator SPIROMETRY: FEV1 is 112 % predicted and an FVC is 122 % predicted. The FEV1/FVC ratio is 93% of normal, no response to bronchodilators noted. LUNG VOLUMES: Total lung capacity (TLC): 107% predicted. Residual volume (RV): 101% predicted RV/TLC ratio is 96% of normal DIFFUSION CAPACITY: DLCO 64% predicted. DlCO/VA 59% of predicted COMPARISONS: INTERPRETATION: This pulmonary function test shows normal spirometry with isolated reduction in diffusion capacity. The diffusion impairment could be due to anemia, ILD, cardiac vascular disease. Please correlate clinically us Lula Charlton MD PFT ORDERABLES Final Result from Last 3 Months Insurance [facility] Care Teams Lean Manufacturing Leader Relationship Specialty Start Date End Date Kari Good NP [address] [facility] [address] [place] [address] PCP - General Family Medicine 07/29/25
== END 2025-10-07 16:30 | disposition home or self-care (01) ==
LOC: HO.HPSW 15:54
PROVIDERS: PCP Nurse Practitioner Family; Visit Provider Nurse Practitioner Family
DX: G47.33 Obstructive sleep apnea (adult) (pediatric) (principal); R05.3 Chronic cough
CPT/HCPCS: 99214